=== PATIENT | female | born 1965 | race Caucasian/White ===

== ENCOUNTER 2021-12-30 09:00 | Outpatient (RCR) | payer MEDICARE, MEDICAID, SELFPAY | END 2021-12-30 23:59 | disposition home or self-care (01) | LOC: ANHAUDIO 09:00 | PROVIDERS: Visit Provider Family Medicine | DX: Z46.1 Encounter for fitting and adjustment of hearing aid (principal); H91.90 Unspecified hearing loss, unspecified ear | CPT/HCPCS: 99199; V5241; V5257; V5264 ==

== ENCOUNTER 2022-12-21 13:23 | Outpatient (RCR) | payer MEDICARE, MEDICAID, SELFPAY | END 2022-12-21 23:59 | disposition home or self-care (01) | LOC: ANHAUDIO 13:23 | PROVIDERS: PCP Family Medicine; Visit Provider Family Medicine | DX: Z46.1 Encounter for fitting and adjustment of hearing aid (principal) | CPT/HCPCS: V5264 ==

== ENCOUNTER 2023-08-04 12:29 | Outpatient (RCR) | payer MEDICARE, MEDICAID, SELFPAY | END 2023-08-04 23:59 | disposition home or self-care (01) | LOC: ANHAUDIO 12:29 | PROVIDERS: PCP Family Medicine | DX: Z46.1 Encounter for fitting and adjustment of hearing aid (principal) | CPT/HCPCS: V5264 ==